=== PATIENT | male | born 1960 | race Caucasian/White ===

== ENCOUNTER 2024-10-31 05:55 | Emergency (ER) | payer SELFPAY ==
[2024-10-31 06:01] VITALS: BP 150/99; BMI 25.6
[2024-10-31 06:02] VITALS: BP 159/107
--- NOTE | 2024-10-31 06:33 | ED.GENMED ---
History of Present Illness
General
Chief Complaint: Blood Pressure Problem
Source: patient
Exam Limitations: none
Time Seen by Provider: 10/31/24 06:24
History of Present Illness
History of Present Illness:
64-year-old male apparently brought in from the [place] [place] Patient states he is homeless. He had been living with a friend but has been homeless for 2 weeks. He did not call for the ambulance. This was prompted by the septic
people. He has no physical complaints at this time. He thinks he is supposed to be on blood pressure medication but does not take it.
Past History
Past History
ED Past Medical History: HTN
Social History
Tobacco: Smoker
Alcohol: Daily
Personal:
Living: homeless
Employment: Not employed
Review of Systems
Review of Systems
All Other Systems: Not applicable
Constitutional: Denies fever or chills
Respiratory: Reports no symptoms
Cardiac: Reports no symptoms
Phy Exam
Physical Exam
Physical Exam:
GENERAL: Alert and oriented in no apparent distress
EYE: Orbits normal.
NECK: Supple, no significant adenopathy.
ENT: Pharynx without erythema
CARDIAC: Regular rate and rhythm without any obvious murmurs.
LUNGS: Clear breath sounds,normal
ABDOMEN: Soft, without focal tenderness or distention
NEUROLOGICAL: Alert and oriented , grossly non-focal
SKIN: Warm and dry, no rash or lesion, no discoloration, skin intact.
MUSCULOSKELETAL: No edema,no deformity.Good color
PSYCH: Normal and appropriate interaction.. Mildly disheveled. Old for stated age
Course
Orders/Labs/Results
Orders:
Orders
10/31/24 06:32
CT Head W/o Iv Contrast Urgent
Comment:
Reason For Exam: Change in mental status
Case Management Consult ONCE
Case Management Consult: Discharge Planning
10/31/24 07:00
Basic Metabolic Panel Urgent
Complete Blood Count/With Diff Urgent
Abnormal Lab Results
10/31/24
07:00
Absolute Monos (auto) 0.7 H 10^3/uL
(0.1-0.6)
Monocytes % 10.4 H %
(1.7-9.3)
BUN 41 H mg/dl
(9-20)
Creatinine 1.6 H mg/dL
(0.7-1.3)
Glucose 45 L* mg/dl
(70-99)
10/31/24 07:00
10/31/24 07:00
Vital Signs
Initial and Last Documented VS:
Initial Vital Signs
Pulse Ox
97
10/31/24 06:00
Last Documented Vital Signs
Temp Pulse Resp BP Pulse Ox
98.5 F 89 18 156/100 98
10/31/24 06:01 10/31/24 06:01 10/31/24 06:01 10/31/24 09:18 10/31/24 06:01
MDM/Problems Addressed
Differential Diagnosis Includes:
Patient does not appear to have any acute medical issues. He is awake alert and oriented. Somewhat vague on his living situation. He did state he would like help. Will get case management involvement. With his alcohol history I would like to do
screen of electrolytes and CT of the head. Rule out any recent head trauma or small subdural. However if this is all stable this becomes a social service issue.
*Radiology
Radiology exam reviewed: radiology read reviewed (No acute findings)
*Pulse Oximetry
Patient hypoxic: no
*Critical Care Note
Total Time (30-74mins, 75-104mins- exclusive of procedures): Not Applicable
Update Note
Update Note:
Patient medically cleared.
ED Attending Note
-
Portions of this chart may have been created with voice recognition software.� Occasional wrong word or��sound alike� substitutions may have occurred due to the inherent limitations of voice recognition software.
Discharge Plan
Departure
Patient Disposition: Home (Routine Discharge)
Date of Disposition: 10/31/24
Time of Disposition: 10:23
Patient with high blood pressure during this ER visit?: Yes
Discharge Problem:
Hypertension, Mild hypoglycemia
Prescriptions:
No Action
No Current Medications
0
Referrals:
[facility] [Provider Group] - Next open appointment
UNKNOWN - PT DOES,NOT KNOW [Family Provider] -
Interventions
Interventions:
*Risk Screen - Suicide Last Done: 10/31/24 06:01
*General Assessment Last Done: 10/31/24 06:01
*Neglect/Abuse Screening Last Done: 10/31/24 06:01
*ED COVID-19 Vaccine History Last Done: 10/31/24 06:01
ED- Cardiac Assessment Last Done: 10/31/24 06:07
ED- Neurological Assessment Last Done: 10/31/24 06:07
ED- Pulmonary Assessment Last Done: 10/31/24 06:07
Discharge Date and Time
Print Language: HUNGARIAN
[2024-10-31 07:13] LABS: % Basophils 0.7 % (0-2); % Immature Granulocytes 0.1 % (0-0.5); % Lymphocytes 23.8 % (20.5-51.1); % Monocytes 10.4 % (1.7-9.3); Absolute Basophils 0.1 10^3/uL (0-0.2); Absolute Eosinophils 0.1 10^3/uL (0-0.7); Absolute Lymphocytes 1.7 10^3/uL (1.2-3.4); Absolute Monocytes 0.7 10^3/uL (0.1-0.6); Absolute Neutrophils 4.4 10^3/uL (1.4-6.5); Hematocrit 41.7 % (39.0-52.0); Hemoglobin 14.3 g/dL (13.0-18.0); Mean Corp Hgb Conc. 34.3 g/dL (33.0-37.0); Mean Corpuscular Hgb 30.1 pg (27.0-31.0); Mean Corpuscular Volume 87.8 fL (80.0-94.0); Mean Platelet Volume 9.6 fL (7.4-10.4); Nucleated Red Blood Cells % 0 % (-); Platelet Count 273 10^3/uL (130-400); Red Blood Cell Count 4.75 10^6/uL (4.70-6.10); Red Cell Dist. Width 11.9 % (11.5-14.5); White Blood Cell Count 6.9 10^3/uL (4.8-10.8)
[2024-10-31 07:23] LABS: Blood Urea Nitrogen 41 mg/dl (9-20); Calcium 9.6 mg/dl (8.4-10.2); Carbon Dioxide 24 mmol/L (22-30); Chloride 105 mmol/L (98-107); Estimated Creatinine Clearance 53 ml/min; Glucose 45 mg/dl (70-99); Sodium 142 mmol/L (135-145); eGFR 47.23
--- NOTE | 2024-10-31 08:12 | PHANOTE ---
MED REC NOTE- SPOKE WITH PATIENT WHO STATED HE DOES NOT TAKE ANY MEDICATION, RECENT FILLS SHOW LIPITOR 20MG DAILY, LISINOPRIL 20MG DAILY, GABAPENTIN 300MG TID AND HYDRALAZINE 25MF PRN, ALL FILLED ON 10/22/34
[2024-10-31 08:32] LABS: Glucose - Point of Care 77 mg/dl (70-99)
--- NOTE | 2024-10-31 09:07 | CM ---
CM met with patient in room. Patient stated that he has been homeless for some time and recently lost temporary housing with his friend. Patient is agreeable to ride to [place] [address] to await [facility] this evening. Patient
was further given information on [facility], [facility] and [facility]. CM updated bedside RN and ER physician.
CM will await discharge and provide transportation assistance via [employer] side [place].
[2024-10-31 09:17] LABS: Glucose - Point of Care 79 mg/dl (70-99)
[2024-10-31 09:18] VITALS: BP 156/100
== END 2024-10-31 10:25 | disposition home or self-care (01) ==
LOC: EMR 05:55
PROVIDERS: EMERGENCY PHYSICIAN Emergency Medicine
DX: I10 Essential (primary) hypertension (principal); E16.2 Hypoglycemia, unspecified; F17.200 Nicotine dependence, unspecified, uncomplicated; Z59.00 Homelessness unspecified
CPT/HCPCS: 99284; 70450; 80048; 82962; 85025